=== PATIENT | male | born 2000 | race Two or more races ===

== ENCOUNTER 2023-09-24 15:01 | Emergency (ER) | payer MEDICAID ==
[~2023-09-24] VITALS: Ht 182.9 cm; Wt 82.0 kg
[2023-09-24 15:06] VITALS: TEMP 98.4
[2023-09-24] MEDS: METHOCARBAMOL 500 MG TABLET PO ONE (18:48)
[2023-09-24] MEDS: KETOROLAC TROMETHAMINE 60 MG/2 ML VIAL IM ONE (18:49)
[2023-09-24 18:58] VITALS: BP 128/63; PULSE 81; RESP 18
[2023-09-24] MEDS ORDERED: ACET-2080 PO (19:26)
[2023-09-24] MEDS ORDERED: METH-659 PO (19:26)
[2023-09-24] MEDS ORDERED: IBUP-1554 PO (19:26)
== END 2023-09-24 19:40 | disposition home or self-care (01) ==
LOC: EMS 15:11
DX: S39.012A Strain of muscle, fascia and tendon of lower back, initial encounter (principal); F12.90 Cannabis use, unspecified, uncomplicated; X50.3XXA Overexertion from repetitive movements, initial encounter; Y93.89 Activity, other specified; Y92.89 Other specified places as the place of occurrence of the external cause; Y99.8 Other external cause status
CPT/HCPCS: 99283; 72100; 96372; J1885

== ENCOUNTER 2023-12-15 09:40 | Emergency (ER) | payer MEDICAID ==
[~2023-12-15] VITALS: Ht 180.3 cm; Wt 80.0 kg
[~2023-12-15 09:40] MED LIST: ACET-2080 PO; IBUP-1554 PO; METH-659 PO
[2023-12-15 09:46] VITALS: TEMP 97.6
[2023-12-15] MEDS ORDERED: IBUP-1492 PO (12:18)
[2023-12-15 12:22] VITALS: BP 119/72; PULSE 64; RESP 16
[2023-12-15] MEDS: IBUPROFEN 400 MG TABLET PO ONE (12:30)
== END 2023-12-15 12:31 | disposition home or self-care (01) ==
LOC: EMS 09:40
DX: S93.602A Unspecified sprain of left foot, initial encounter (principal); F12.90 Cannabis use, unspecified, uncomplicated; X58.XXXA Exposure to other specified factors, initial encounter; Y93.89 Activity, other specified; Y92.89 Other specified places as the place of occurrence of the external cause; Y99.8 Other external cause status
CPT/HCPCS: 99283